=== PATIENT | female | born 1935 | race Caucasian/White ===

== ENCOUNTER 2018-02-07 21:10 | Observation (INO) | payer MEDICARE, BC ==
[~2018-02-07] VITALS: Ht 165.1 cm; Wt 72.6 kg
[~2018-02-07 21:10] MED LIST: ACIPHEX; ADULT LOW DOSE81 MG PO; ALBUTEROL INHAL17 GM IH; ALDACTONE25 MG PO; AMBEREN; AMOXICILLIN 50500 MG PO; ASPIRIN325 PO; ATIVAN1 MG PO; AZITHROMYCIN 2250 MG PO; B12 PO; Blood pressure med; CALCIUM OYSTER500 MG PO; CALCIUM PO; CARVEDILOL12.5 MG PO; CARVEDILOL3.125 MG PO; COREG; COZAAR 25 MG TA25 MG; COZAAR 25 MG TA25 MG PO; CRESTOR5 MG PO; FLONASE; FLUZONE 2045 MCG/011; GABAPENTIN100 MG; GERITOL; GERITOL PO; HYLANDS LEG CRAMPS; HYOSCYAMINE0.375 M2 PO; IBUPROFEN 800800 M1 PO; IMDUR 30 MG TAB30 M1; IMDUR 30 MG TAB30 M1 PO; KLOR-CON PO; LIPITOR 20 MG T20 M1 PO; LISINOPRIL10 MG PO; LOPRESSOR 50 MG50 M1 PO; LORTABELXR PO; MAGNESIUM100 MG PO; MULTIVITAMINS PO; NEXIUM 40 MG CA40 M1; NEXIUM 40 MG CA40 M1 PO; NITROGLYCERIN0.4 MG SUBLING; NITROSTAT0.4 MG SL; NORVASC 5 MG TAB5 MG PO; OXYCODONE HCL5 M1 PO; PAXIL10 MG; PERCOCET 5-3251 EACH PO; PLAVIX 75 MG TA75 MG PO; PNEUMOVAX25 MCG/0.5; POTASSIUM99 M1 PO; PREDNISONE50 MG PO; PREVACID PO; PREVACID15 MG PO; PREVACID30 MG PO; PRILOSEC 20 MG20 MG PO; PRILOSEC2.5 MG PO; SYSTANE 0.3-0.1 EACH OP; TOPROL XL25 MG PO; TRAMADOL 50 MG50 MG PO; TYLENOL PM EX-1 EACH PO; ULTRAM 50MG TAB50 MG PO; VESICARE 5 MG TA5 M1 PO; VESICARE10 M1 PO; VITAMIN B-12100 MC1; VITAMIN B-12100 MCG PO; VITAMIN B-122000 MCG PO; VITAMIN B-12500 MCG PO; VITAMIN D1000 UNI1 PO; VITAMIN D32000 UNIT PO; VITAMIN D35000 UNI1; VITAMIN D35000 UNI1 PO; XANAX 0.25 MG0.25 MG PO; ZESTRIL40 MG; [UNRECOGNIZED DRUG - OTHER] PO; [UNRECOGNIZED DRUG - OTHER] TRANSDERM
[2018-02-07 21:17] VITALS: BP 216/94
[2018-02-07 22:22] LABS: HEMATOCRIT 33.2 % (37.0-47.0); HEMOGLOBIN 11.3 gm/dL (12.0-15.0); MCH 33.7 pg (26.0-34.0); MCHC 34.1 g/dL (28.0-37.0); MCV 98.8 fL (80.0-100.0); MPV 11.3 fl. (7.2-11.1); NUCLEATED RBCS 0 /100WBC; PLATELET COUNT* 158 thou/uL (150-400); RBC 3.36 mil/uL (4.20-5.00); WBC 6.1 thou/uL (4.0-11.0)
[2018-02-07 22:30] LABS: ANION GAP 9 mmol/L (7-16); BUN 15 mg/dL (7-18); CHLORIDE 102 mmol/L (98-107); CO2 28 mmol/L (21-32); CREATININE 0.9 mg/dL (0.6-1.3); GLUCOSE 102 mg/dL (70-99); POTASSIUM 3.6 mmol/L (3.5-5.1); SODIUM 139 mmol/L (136-145)
[2018-02-07 22:32] LABS: PROTIME 10.1 Seconds (9.20-11.50)
[2018-02-07 22:41] LABS: ALBUMIN 4.1 g/dL (3.4-5.0); ALKALINE PHOSPHATASE 52 U/L (46-116); LIPASE 174 U/L (73-393); NT-PRO BRAIN NAT PEPTIDE 223 pg/mL (<300); SGOT 17 U/L (15-37); SGPT 16 U/L (30-65); TOTAL BILIRUBIN 0.2 mg/dL (<0.1-1.0); TOTAL PROTEIN 7.4 g/dL (6.4-8.2); TROPONIN-I LEVEL <0.06 ng/mL (<0.06)
[2018-02-07 23:15] LABS: ABSOLUTE BASOPHILS 0.1 thou/uL (0.0-0.2); ABSOLUTE EOSINOPHILS 0.2 thou/uL (0.0-0.7); ABSOLUTE LYMPHOCYTES 1.7 thou/uL (0.8-5.3); ABSOLUTE NEUTROPHILS 3.1 thou/uL (1.6-8.1)
[2018-02-07 23:16] LABS: ANISOCYTOSIS Occasional; LARGE PLATELETS OCCASIONAL; PLATELET ESTIMATE ADEQUATE
[2018-02-08] VITALS (7 sets, daily range): BP systolic 118–179; BP diastolic 53–97
[2018-02-08] MEDS ORDERED: NORVASC2.5 MG PO (00:56)
[2018-02-08] MEDS ORDERED: PLAVIX 75 MG TA75 M1 PO (00:57)
[2018-02-08] MEDS ORDERED: PROTONIX40 M1 PO (00:57)
--- NOTE | 2018-02-08 05:48 | NUR ---
RECIEVED REPORT FROM ED. PT TRANSFERRED TO 202. PT A&OX4. VSS.ADMISSION HISTORY & PHYSICAL ASSESSMENT COMLPETED AND CHARTED. PT ON RA WITH 98% O2 SAT. PT TRACING SR 1ST DEG ON TELE. PT UP STANDBY ASSIST TO THE TOILET. PT COMPLAINED OF HEADACHE WITH PAIN SCALE OF 5/10- DR DILLARD INFORMED WITH NEW ORDER. PAIN MEDS GIVEN PER JUN. PT DENIES OF CHEST PAIN OR SOA. ORIENTED TO ROOM AND CALL LIGHT. FALL FORM SIGNED. HOURLY ROUNDING OBSERVED. CALL LIGHT WITHIN REACH. BED IN LOW POSITION. BED ALARM ON.
--- NOTE | 2018-02-08 10:20 | EKG ---
[place] [address] ELECTROCARDIOGRAM REPORT Name: EVAN RANGEL Room: [address] ADM IN .R.#: [id number] Admission: 02/07/18 Attend Phys: Andre Merchant MD Discharge: Date of : 39 Report #: [id number] THIS REPORT FOR: //name// [facility] ED Test Date: 2018-02-07 Test Time: 21:15:53 Pat Name: EVAN RANGEL Department: Room: [facility] Gender: F Funeral Home Attendant: : 1935 Requested By: Taylor Farah Order Number: [id number] MD: Alan Martínez Measurements Intervals [place] Rate: 72 P: 80 CA: 202 QRS: 62 QRSD: 96 T: 40 QT: 399 QTc: 437 Interpretive Statements Sinus rhythm Consider left atrial enlargement Compared to ECG 12/04/2015 13:48:22 No significant changes Electronically Signed On 02-08-2018 10:20:36 CDT by Alan Martínez [email or web address] <ELECTRONICALLY SIGNED> By: Alan Martínez MD, [facility] 02/08/18 1020 14 14 Alan Martínez MD, FAC /EPI
--- NOTE | 2018-02-08 12:44 | 2DMMODE ---
[place] [address] 2 D/M-MODE ECHOCARDIOGRAM Name: EVAN RANGEL Room: [address] IN [facility]#: [id number] Admission: 02/07/18 Attend Phys: Andre Merchant, Discharge: Date of : 39 Date of Service: 02/08/18 1244 Report #: [id number] THIS REPORT FOR: //name// APPROVED REPORT Study performed: 02/08/2018 10:37:34 EXAM: Comprehensive 2D, Doppler, and color-flow Echocardiogram Patient Location: In-Patient Room #: [facility] Status: routine BSA: 1.80 HR: 63 bpm BP: 140/58 mmHg Rhythm: NSR Other Information Study Quality: Good Indications Chest Pain 2D Dimensions IVSd: 10.73 (7-11mm) LVOT Diam: 21.06 (18-24mm) LVDd: 43.95 mm PWd: 10.80 (7-11mm) Ascending Ao: 28.18 (22-36mm) LVDs: 31.37 (25-40mm) Aortic Root: 31.14 mm Volumes Left Atrial Volume (Systole) LA ESV Index: 21.90 mL/m2 Aortic Valve AoV Peak Miguel.: 1.55 m/s AO Peak Gr.: 9.64 mmHg LVOT Max P.50 mmHg AO Mean Gr.: 5.92 mmHg LVOT Mean P.13 mmHg LVOT Max V: 1.06 m/s AO V2 VTI: 36.27 cm LVOT Mean V: 0.67 m/s ARACELI (VTI): 2.37 cm2 LVOT V1 VTI: 24.65 cm Mitral Valve E/A Ratio: 0.80 MV Decel. Time: 293.86 ms MV E Max Miguel.: 0.73 m/[place] [address] 2 D/M-MODE ECHOCARDIOGRAM Name: EVAN RANGEL Room: [address] IN .R.#: [id number] Admission: 02/07/18 Attend Phys: Andre Merchant, Discharge: Date of : 39 Date of Service: 02/08/18 1244 Report #: [id number] MV PHT: 85.22 ms MVA (PHT): 2.58 cm2 TDI E/Lateral E': 7.30 E/Medial E': 8.11 Medial E' Miguel.: 0.09 m/s Lateral E' Miguel.: 0.10 m/s Pulmonary Valve PV Peak Miguel.: 1.04 m/s PV Peak Gr.: 4.34 mmHg Left Ventricle The left ventricle is normal size. There is normal LV segmental wall motion. There is normal left ventricular wall thickness. Left ventricular systolic function is normal. The left ventricular ejection fraction is within the normal range. LVEF is 50-55%. Grade I - abnormal relaxation pattern. Right Ventricle The right ventricle is normal size. The right ventricular systolic function is normal. Atria The left atrium size is normal. The right atrium size is normal. Aortic Valve Mild aortic valve sclerosis. No aortic regurgitation is present. There is no aortic valvular stenosis. Mitral Valve The mitral valve is normal in structure. Trace mitral regurgitation. No evidence of mitral valve stenosis. Tricuspid Valve The tricuspid valve is normal in structure. Trace tricuspid regurgitation. Pulmonic Valve The pulmonary valve is normal in structure. Mild pulmonic regurgitation. Great Vessels The aortic root is normal in size. IVC is not [place] [address] 2 D/M-MODE ECHOCARDIOGRAM Name: EVAN RANGEL Room: [address] IN [facility]#: [id number] Admission: 02/07/18 Attend Phys: Andre Merchant, Discharge: Date of : 39 Date of Service: 02/08/18 1244 Report #: [id number] Pericardium There is no pericardial effusion. <Conclusion> LVEF is 50-55%. <ELECTRONICALLY SIGNED> By: Alan Martínez MD, [facility] 02/08/18 1244 1244 124 Alan Martínez MD, FACC /INF
--- NOTE | 2018-02-08 13:03 | NUR ---
RECEIVED PT CARE 0700. SHE IS ALERT AND ORIENTED X4. VSS. REHABILITATION PHYSICIAN TRACING SR. SHE DENIES ANY SOA. O2 SAT 93% ON ROOM AIR. SHE IS UP STANDBY ASSIST IN ROOM WITH BATHROOM PRIVILEDGES. HER GAIT IS SLIGHTLY UNSTEADY AT TIMES. AM ASSESSMENT CHARTED. MEDS PER MAR. PLANNING FOR ECHO TODAY. BED ALARM ON. CALL LIGHT WITHIN REACH. WILL CONTINUE TO MONITOR.
--- NOTE | 2018-02-08 15:29 | NUR ---
Pt is A&O. Resides at home alone. 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 Pt stated that she has home o2 through [facility], but she hasn't used it in over 2 years, Pt states that she has tried to get them to pick it up, but stated that they won't without a Drs order, Pt will try to obtain a Drs order. Hx of HH approx 5 years ago, does not remember the name of the agency. Hx of SNF in approx 5 years ago. Goal is to [place] at [place], no needs anticipated. Following.
--- NOTE | 2018-02-08 16:43 | NUR ---
RECEIVED DISCHARGE ORDERS PER DR DILLARD. IV DISCONTINUED. EMPLOYMENT PROGRAMS ANALYST REMOVED AND RETURNED TO NURSE'S DESK. EDUCATED THE PT ON F/U APPT WITH HER PRIMARY DR AND FULL TIME STAFF INTERPRETER. SHE DENIES ANY QUESTIONS OR CONCERNS AT DISCHARGE. LEAVING VIA WHEELCHAIR ACCOMPANIED OFF UNIT BY NURSING STAFF. TRANSPORTED HOME BY THE PATIENTS DAUGHTER. ALL BELONGINGS PACKED AND LEAVING WITH PATIENT.
--- NOTE | 2018-02-10 15:12 | CON ---
[address] [address] CONSULTATION Name: EVAN RANGEL Room: [address] [place]#: [id number] Admission: 02/07/18 Attend Phys: Andre Merchant MD Discharge: 02/08/18 Date of : 39 Report #: [id number] THIS REPORT FOR: //name// CC: Andre Bedoya MD DATE OF SERVICE: 02/08/2018 HISTORY OF PRESENT ILLNESS: The patient is an 82-year-old single white female whom I was asked to see in the hospital today because of shortness of breath. The patient has an extensive past medical history. She has had multiple hospitalizations here at [place]. The patient was seen by Dr. Pelletier here at [place] back in 2010 when she complained of chest pain. She had actually fallen at [facility]. The ECG by paramedics suggested ST segment elevation. The patient was taken to the catheterization lab in 02/[address] Pelletier and underwent a heart catheterization for possible inferior STEMI. Procedure was performed from the right femoral artery. Results showed an ejection fraction of 40% with apical hypokinesis. There was actually a minimal coronary plaque, but no significant stenosis. 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 The patient has been followed medically since that time. She was last seen by Dr. Pelletier in 11/2013. She apparently had a stress echocardiogram in 2012 that showed no evidence of ischemia. Her last echocardiogram here at [place] was in 2015 that showed an ejection fraction of 55%, but no PFO by bubble study. The patient states recently she has been short of breath. She apparently did see a large animal husbandry technician recently. She is on oxygen at bedtime. Recently, she has had a dry cough, but no edema. She denies waking up at night short of breath. Because of increasing shortness of breath, she finally came to the hospital last night and was admitted. She does have occasional sharp chest pain, although it is not exertional. She denies any palpitations or syncope. PAST MEDICAL HISTORY: Significant for knee arthroscopy, back surgery, hysterectomy, cholecystectomy, hypertension, hyperlipidemia. MEDICATIONS: Include Norvasc, Protonix. In September of this year, she apparently was admitted to [facility] in [facility] with some confusion, thought to have had a TIA and she was placed on Plavix. ALLERGIES: She has a previous intolerance to VICODIN and STATIN DRUGS. FAMILY HISTORY: Mother had coronary bypass surgery. SOCIAL HISTORY: She is , lives in an apartment in [place], [place]. No smoking. No alcohol abuse. REVIEW OF SYSTEMS: She has had no history of ulcer, liver disease, [place] [address] CONSULTATION Name: JUAN CARLOSEVAN Room: [address] [place]#: [id number] Admission: 02/07/18 Attend Phys: Andre Merchant MD Discharge: 02/08/18 Date of : 39 Report #: [id number] disease, cancer, psychiatric illness. PHYSICAL EXAMINATION: GENERAL: Reveals an elderly female, lying in bed, she appeared in no distress. VITAL SIGNS: Showed blood pressure of 160/70, pulse 70. She is afebrile. HEENT: She was anicteric, conjunctiva pink. Mucous membranes moist. NECK: Veins do not appear distended. No carotid bruits. CHEST: Clear to auscultation. CARDIAC: Regular rate and rhythm. ABDOMEN: Soft. EXTREMITIES: Had no edema. Dorsalis pedis pulse 2+ bilaterally. SKIN: Warm, dry. NEUROLOGIC: Nonfocal. LYMPH: No adenopathy. MUSCULOSKELETAL: No joint effusion. RADIOLOGICAL DATA: ECG done in the Emergency Room last night showed a sinus rhythm. There was no ST or T-wave change. Her workup included sodium 139, potassium 3.6, creatinine 0.9. Her liver function studies were normal. Troponin 0.06. Previous cholesterol was 193, triglycerides 56, HDL 58, LDL 124. TSH in the past was 1.0. White blood cell count was 6.1, hemoglobin 11.3, hematocrit 33.2. She actually had a hematocrit 33 back in 2011. X-rays: The patient had a portable chest x-ray last night, it showed normal heart size, no infiltrate, clear lung hillman. CT scan of the chest using a PE protocol showed a small nodule not suspicious for malignancy, no pulmonary embolus. IMPRESSION AND RECOMMENDATIONS: 1. Shortness of breath. Reason unclear. No evidence of heart failure, chronic obstructive pulmonary disease, pneumonia or pulmonary embolus. Suspect exercise intolerance. Recommend no further cardiac evaluation. 2. Hypertension. The patient is on a calcium avery. 3. Hyperlipidemia. The patient cannot tolerate statin drugs. 4. Chest pain, atypical for angina. Suspect noncardiac. Recommend no further cardiac workup. 5. Apneic spells. The patient followed by large animal husbandry technician. 6. Previous episode of confusion. The patient felt to have had a TIA. Currently on Plavix. <ELECTRONICALLY SIGNED> By: Alan Martínez MD, [facility] 02/10/18 1512 0837 [id number] Rafita Martínez MD, DIANN /nt
--- NOTE | 2018-02-18 13:15 | NUR ---
G CODES FOR DATE OF SERVICE ON 02/08/18 MOBILITY CURRENT STATUS (G8978) MODIFIER CH 0% MOBILITY DISCHARGE STATUS (G8980) MODIFIER CH 0%
== END 2018-02-08 16:50 | disposition home or self-care (01) ==
LOC: M.ERS 21:10 → M.2W 23:23 → M.TBA-ER 23:23 → M.2W 23:23
PROVIDERS: Emergency Medicine; ADMIT Internal Medicine
DX: R07.9 Chest pain, unspecified (principal); F41.9 Anxiety disorder, unspecified; I10 Essential (primary) hypertension; E78.5 Hyperlipidemia, unspecified; I25.2 Old myocardial infarction; R06.81 Apnea, not elsewhere classified; Z90.710 Acquired absence of both cervix and uterus; Z90.49 Acquired absence of other specified parts of digestive tract; Z87.891 Personal history of nicotine dependence

== ENCOUNTER 2019-10-01 23:18 | Emergency (ER) | payer MEDICARE, BC ==
[~2019-10-01] VITALS: Ht 170.2 cm; Wt 67.6 kg
[~2019-10-01 23:18] MED LIST changes: +NORVASC2.5 MG PO; +PLAVIX 75 MG TA75 M1 PO; +PROTONIX40 M1 PO
[2019-10-01] MEDS ORDERED: TOPROL XL25 MG PO (23:28)
[2019-10-01] MEDS ORDERED: OXYBUTYNIN 5 MG5 M2 PO (23:29)
[2019-10-02 00:49] LABS: HEMATOCRIT 30.9 % (37.0-47.0); HEMOGLOBIN 10.6 gm/dL (12.0-15.0); MCH 32.9 pg (26.0-34.0); MCHC 34.4 g/dL (28.0-37.0); MCV 95.7 fL (80.0-100.0); MPV 11.1 fl. (7.2-11.1); NUCLEATED RBCS 0 /100WBC; PLATELET COUNT* 167 thou/uL (150-400); RBC 3.23 mil/uL (4.20-5.00); RDW-CV 14.9 % (10.5-14.5); WBC 11.4 thou/uL (4.0-11.0)
[2019-10-02 00:52] LABS: CALCIUM 8.8 mg/dL (8.5-10.1); CREATININE 1.3 mg/dL (0.6-1.3); POTASSIUM 4.1 mmol/L (3.5-5.1)
[2019-10-02 00:56] LABS: PROTIME 10.5 Seconds (9.20-11.50)
[2019-10-02 01:03] LABS: ALBUMIN 3.4 g/dL (3.4-5.0); MAGNESIUM 2.5 mg/dL (1.8-2.4); TOTAL BILIRUBIN 0.2 mg/dL (<0.1-1.0); TOTAL PROTEIN 7.5 g/dL (6.4-8.2)
[2019-10-02 01:44] LABS: ABSOLUTE EOSINOPHILS 0.5 thou/uL (0.0-0.7); ABSOLUTE LYMPHOCYTES 1.3 thou/uL (0.8-5.3); ABSOLUTE MONOCYTES 3.4 thou/uL (0.0-1.2); ABSOLUTE NEUTROPHILS 6.3 thou/uL (1.6-8.1); CLUMPED PLTS OCCASIONAL; PLATELET ESTIMATE ADEQUATE
[2019-10-02 01:48] LABS: LARGE PLATELETS OCCASIONAL
[2019-10-02 03:32] VITALS: BP 128/59
--- NOTE | 2019-10-02 12:56 | EKG ---
[place] [address] ELECTROCARDIOGRAM REPORT Name: EVAN RANGEL Room: [facility]#: [id number] Admission: 10/01/19 Attend Phys: Discharge: 10/02/19 Date of : 39 Date of Service: 10/01/19 232 Report #: [id number] THIS REPORT FOR: //name// [facility] ED Test Date: 2019-10-01 Test Time: 23:22:07 Pat Name: EVAN RANGEL Department: Room: Gender: Dressage Judge: [place] : 1935 Requested By: Taylor Farah Order Number: [id number] MD: Alan Martínez Measurements Intervals [place] Rate: 90 P: 58 CA: 209 QRS: 42 QRSD: 98 T: 35 QT: 356 QTc: 436 Interpretive Statements Sinus rhythm Probable anteroseptal infarct, recent Baseline wander in lead(s) V5 Compared to ECG 02/07/2018 21:15:53 Myocardial infarct finding now present Electronically Signed On 10-02-2019 12:53:59 CDT by Alan Martínez [email or web address] <ELECTRONICALLY SIGNED> By: Alan Martínez MD, [facility] 10/02/19 1253 2322 [id number] Alan Martínez MD, [facility] /EPI
== END 2019-10-02 03:32 | disposition home or self-care (01) ==
LOC: M.ERS 23:18
PROVIDERS: Emergency Medicine
DX: R06.01 Orthopnea (principal); R42 Dizziness and giddiness; I10 Essential (primary) hypertension; E78.5 Hyperlipidemia, unspecified; Z90.710 Acquired absence of both cervix and uterus; Z88.5 Allergy status to narcotic agent; Z90.49 Acquired absence of other specified parts of digestive tract; Z90.89 Acquired absence of other organs